=== PATIENT | male | born 1970 | race American Indian/Alaskan Native ===

== ENCOUNTER 2019-04-28 21:28 | Emergency (ER) | payer BC ==
--- NOTE | 2019-04-28 22:12 | Emergency Department Report ---
Blank Doc - Documentation Documentation: 49 y/o AAM presents to ED c/o of HIGH, SOB, Cough, CP and coryza. Seen at the [facility] a few days ago and dx with URI with now worsening. No vomiting or diarrhea. No travel or new medications. Plan cxr and labs
[2019-04-28] MEDS ORDERED: ACETAMINOPHEN 325 MG TAB ONE (22:16)
[2019-04-28] MEDS ORDERED: ACETAMINOPHEN 325 MG TAB PO ONE (22:16)
[2019-04-28 22:57] LABS: Basophils % (Auto) 0.5 % (0.0-1.8); Lymphocytes # (Auto) 0.9 K/mm3 (1.2-5.4); Lymphocytes % (Auto) 9.9 % (13.4-35.0); Mean Corpuscular HGB Conc 36 % (32-34); Mean Corpuscular Volume 94 fl (84-94); Monocytes # (Auto) 1.3 K/mm3 (0.0-0.8); Monocytes % (Auto) 14.5 % (0.0-7.3); Platelet Count 177 K/mm3 (140-440); Red Blood Count 4.56 M/mm3 (3.65-5.03); Red Cell Distribution Width 13.9 % (13.2-15.2)
[2019-04-28 23:13] LABS: Hematocrit 42.7 % (35.5-45.6); Hemoglobin 15.3 gm/dl (11.8-15.2)
[2019-04-28 23:20] LABS: Alanine Aminotransferase 48 units/L (7-56); Albumin 3.6 g/dL (3.9-5); BUN/Creatinine Ratio 10; Blood Urea Nitrogen 11 mg/dL (9-20); Calcium 8.6 mg/dL (8.4-10.2); Hemolysis Index 6
--- NOTE | 2019-04-28 23:35 | XRay Report ---
CHEST 1 VIEW 04/28/2019 11:24 PM INDICATION / CLINICAL INFORMATION: cough and fever. COMPARISON: None available. FINDINGS: SUPPORT DEVICES: None. HEART / MEDIASTINUM: No significant abnormality. LUNGS / PLEURA: Airspace disease in the lingula of the left upper lobe. No pneumothorax. ADDITIONAL FINDINGS: No significant additional findings. IMPRESSION: 1. Findings concerning for lingular pneumonia. Signer Name: Anastacio Calixto MD Signed: 04/28/2019 11:31 PM Workstation Name: [id number]
[2019-04-29] MEDS ORDERED: cefTRIAXone/NS 1 GM/50 ML 1 GM/50 ML BAG IV ONE (00:16)
[2019-04-29] MEDS ORDERED: ALBUTEROL 2.5 MG/3 ML NEBU IH ONE ×2 (00:16→03:27)
[2019-04-29] MEDS ORDERED: ONDANSETRON 4 MG/2 ML INJ IV ONE (00:16)
[2019-04-29] MEDS ORDERED: KETOROLAC 30 MG/1 ML INJ IM ONE (00:16)
[2019-04-29] MEDS ORDERED: SODIUM CHLORIDE 0.9% 1000 ML 1,000 ML IV ONE (00:17)
--- NOTE | 2019-04-29 00:23 | Emergency Department Report ---
ED General Adult HPI - General Chief complaint: Fever Stated complaint: HEADACHES, SOB Time Seen by Provider: 04/28/19 22:08 Source: patient Mode of arrival: Ambulatory Limitations: No Limitations - History of Present Illness Initial comments: 49 y/o AAM presents to ED c/o of HIGH, SOB, Cough, CP and coryza. Seen at the urgent care a few days ago and dx with URI with now worsening. No vomiting or diarrhea. No travel or new medications. Onset/Timin -: days(s) Location: head, chest Radiation: non-radiation Severity scale (0 -10): 7 Quality: aching Consistency: constant Improves with: none Worsens with: movement Associated Symptoms: chest pain ( chest wall pain with cough ), cough, fever/chills, headaches, shortness of breath Treatments Prior to Arrival: none - Related Data Previous Rx's Medication Instructions Recorded Last Taken Type ALBUTEROL Inhaler (OR & NICU) 2 puff IH QID PRN #1 inhalation 04/29/19 Unknown Rx [ProAir HFA Inhaler] Azithromycin [Zithromax Z-VIKKI] 250 mg PO DAILY #6 tab 04/29/19 Unknown Rx Benzonatate [Tessalon Perles] 100 mg PO Q8HR PRN #30 capsule 04/29/19 Unknown Rx Ibuprofen [Motrin 800 MG tab] 800 mg PO Q8HR PRN #30 tablet 04/29/19 Unknown Rx Allergies Allergy/AdvReac Type Severity Reaction Status Date / Time No Known Allergies Allergy Unverified 04/28/19 22:08 ED Review of Systems ROS: Stated complaint: HEADACHES, SOB Other details as noted in HPI Constitutional: chills, fever, malaise Eyes: denies: eye pain, eye discharge, vision change ENT: congestion Respiratory: cough, shortness of breath Cardiovascular: chest pain (chest wall pain with cough ). denies: palpitations Endocrine: no symptoms reported Gastrointestinal: denies: abdominal pain, nausea, diarrhea Genitourinary: denies: urgency, dysuria Musculoskeletal: denies: back pain, joint swelling, arthralgia Skin: denies: rash, lesions Neurological: denies: headache, weakness, paresthesias Psychiatric: denies: anxiety, depression Hematological/Lymphatic: denies: easy bleeding, easy bruising ED Past Medical Hx - Past Medical History Previous Medical History?: No - Surgical History Past Surgical History?: Yes Additional Surgical History: Right ACL - Social History Smoking Status: Never Smoker Substance Use Type: None - Medications Home Medications: Home Medications Medication Instructions Recorded Confirmed Last Taken Type ALBUTEROL Inhaler (OR & NICU) 2 puff IH QID PRN #1 inhalation 04/29/19 Unknown Rx [ProAir HFA Inhaler] Azithromycin [Zithromax Z-VIKKI] 250 mg PO DAILY #6 tab 04/29/19 Unknown Rx Benzonatate [Tessalon Perles] 100 mg PO Q8HR PRN #30 capsule 04/29/19 Unknown Rx Ibuprofen [Motrin 800 MG tab] 800 mg PO Q8HR PRN #30 tablet 04/29/19 Unknown Rx ED Physical Exam - General Limitations: No Limitations General appearance: alert, in no apparent distress - Head Head exam: Present: atraumatic, normocephalic - Eye Eye exam: Present: normal appearance, PERRL, EOMI Pupils: Present: normal accommodation - ENT ENT exam: Present: normal orophraynx, mucous membranes moist, TM's normal bila terally, normal external ear exam - Expanded ENT Exam Expanded Throat exam: Positive: tonsillar erythema, tonsillomegaly, other (uvula midline no exudate no stridor no lesions no exudate ). Negative: tonsillar exudate, R peritonsillar mass, L peritonsillar mass - Neck Neck exam: Present: normal inspection, full ROM. Absent: tenderness, meningismus, lymphadenopathy, thyromegaly - Respiratory Respiratory exam: Present: chest wall tenderness, decreased breath sounds (left lower). Absent: wheezes, rales, rhonchi, stridor - Cardiovascular Cardiovascular Exam: Present: regular rate, normal rhythm, normal heart sounds. Absent: systolic murmur, diastolic murmur, rubs, gallop - GI/Abdominal GI/Abdominal exam: Present: soft, normal bowel sounds. Absent: distended, tenderness, guarding, rebound, rigid, bruit, hernia - Rectal Rectal exam: Present: deferred - Extremities Exam Extremities exam: Present: normal inspection - Back Exam Back exam: Present: normal inspection, full ROM. Absent: tenderness, CVA tenderness (R), CVA tenderness (L), muscle spasm, rash noted - Neurological Exam Neurological exam: Present: alert, oriented X3, CN II-XII intact, normal gait, reflexes normal. Absent: motor sensory deficit - Psychiatric Psychiatric exam: Present: normal affect, normal mood - Skin Skin exam: Present: warm, dry, intact, normal color. Absent: rash ED Course Vital Signs 04/28/19 04/28/19 21:38 22:28 Temperature 101.9 F H Pulse Rate 103 H Respiratory 18 18 Rate Blood Pressure 127/84 O2 Sat by Pulse 93 Oximetry ED Medical Decision Making - Lab Data Result diagrams: 04/28/19 22:31 04/28/19 22:31 - Radiology Data Radiology results: report reviewed, image reviewed [facility] [address] [place] [address] XRay Report Signed Patient: JUDI CORTEZ MR#: [id number] : 1970 Acct:[id number] Age/Sex: 49 / M ADM Date: 04/28/19 Loc: ED Attending Dr: Ordering Physician: ERIC CHOI Date of Service: 04/28/19 Procedure(s): XR chest routine 2V Accession Number(s): [id number] cc: ERIC CHOI Fluoro Time In Minutes: CHEST 1 VIEW 04/28/2019 11:24 PM INDICATION / CLINICAL INFORMATION: cough and fever. COMPARISON: None available. FINDINGS: SUPPORT DEVICES: None. HEART / MEDIASTINUM: No significant abnormality. LUNGS / PLEURA: Airspace disease in the lingula of the left upper lobe. No pneumothorax. ADDITIONAL FINDINGS: No significant additional findings. IMPRESSION: 1. Findings concerning for lingular pneumonia. Signer Name: Anastacio Calixto MD Signed: 04/28/2019 11:31 PM Workstation Name: [id number] Transcribed By: [email or web address] Dictated By: Anastacio Calixto MD Electronically Authenticated By: Anastacio Calixto MD Signed Date/Time: 04/28/192330 DD/ 30 TD/TT: - Medical Decision Making cxr YING Pnuemonia, symptoms improved with medications given in ed, plan, azithromycin, Ibuprofen, abluterol inhaler, follow up with pcp in 2-3 days return to ed if symptoms worsen. Critical care attestation.: If time is entered above; I have spent that time in minutes in the direct care of this critically ill patient, excluding procedure time. ED Disposition Clinical Impression: CAP (community acquired pneumonia) Qualifiers: Laterality: left Lung location: upper lobe of lung Qualified Code(s): J18.1 - Lobar pneumonia, unspecified organism Disposition: TO HOME OR SELFCARE Is pt being admited?: No Does the pt Need Aspirin: No Condition: Stable Instructions: Bacterial Pneumonia (ED), Community-acquired Pneumonia (ED) Prescriptions: Ibuprofen [Motrin 800 MG tab] 800 mg PO Q8HR PRN #30 tablet PRN Reason: pain fever ALBUTEROL Inhaler (OR & NICU) [ProAir HFA Inhaler] 2 puff IH QID PRN #1 inhalation PRN Reason: Shortness Of Breath Benzonatate [Tessalon Perles] 100 mg PO Q8HR PRN #30 capsule PRN Reason: Cough Azithromycin [Zithromax Z-VIKKI] 250 mg PO DAILY #6 tab Referrals: PRIMARY CARE, [Primary Care Provider] - 3-5 Days Forms: Work/School Release Form(ED) Time of Disposition: 05:06
[2019-04-29 02:15] LABS: Bilirubin,Urine NEG (Negative); Blood,Urine MOD (Negative); Color,Urine Yellow (Yellow); Mucus,Urine FEW /HPF
[2019-04-29] MEDS ORDERED: SODIUM CHLORIDE 0.9% 50 ML ONE (03:26)
[2019-04-29] MEDS ORDERED: SODIUM CHLORIDE 0.9% 1000 ML 1,000 ML ONE (05:41)
[2019-04-29 06:14] VITALS: BP 122/74
== END 2019-04-29 06:12 | disposition home or self-care (01) ==
LOC: ED 21:28
DX: J18.1 Lobar pneumonia, unspecified organism (principal); J06.9 Acute upper respiratory infection, unspecified; Z79.1 Long term (current) use of non-steroidal anti-inflammatories (NSAID); Z79.899 Other long term (current) drug therapy
CPT/HCPCS: 36415; 71046; 80053; 81001; 85025; 87086; 94640; 96365; 96366; 96372; 96375; 99284; J0696; J7030